=== PATIENT | female | born 1995 | race Caucasian/White ===

== ENCOUNTER 2020-07-05 16:08 | Emergency (ER) | payer OTHER ==
[2020-07-05 18:08] LABS: BILIRUBIN NEGATIVE (NEGATIVE); BLOOD NEGATIVE Ery/uL (NEGATIVE); CLARITY CLEAR (CLEAR); COLOR YELLOW (YELLOW); GLUCOSE (U) NORMAL (NORMAL); LEUKOCYTES NEGATIVE Leu/uL (NEGATIVE); NITRITE NEGATIVE (NEGATIVE); PROTEIN NEGATIVE (NEGATIVE)
[2020-07-05 18:20] LABS: BASOPHIL 0.7 % (0-2); EOSINOPHIL 3.5 % (0-5); HGB 16.1 g/dl (12.5-16.0); LYMPHOCYTE 32.7 % (15-48); MCH 32.6 pg (25.0-31.0); MCHC 34.3 g/dL (32.0-36.0); MCV 95.1 fL (78.0-100.0); MONOCYTE 13.4 % (0-12); MPV 9.1 fL (6.0-9.5); NEUTROPHIL 49.6 % (41-80); NRBC 0; PLT 316 K/uL (150-400); RBC 4.94 M/uL (4.20-5.40); RDW 12.4 % (11.5-14.0); WBC 7.6 K/uL (4.0-10.5)
[2020-07-05 18:35] LABS: ALBUMIN 4.3 g/dL (3.4-5.0); BILIRUBIN - TOTAL 0.4 mg/dL (0.2-1.0); BUN/CREAT RATIO (CALC) 16.4 RATIO; CREATININE 0.67 mg/dL (0.51-0.95); GLOBULIN (CALCULATION) 3.8 g/dL; POTASSIUM 3.9 mmol/L (3.5-5.1); TOTAL PROTEIN 8.1 g/dL (6.4-8.2)
[2020-07-05] MEDS ORDERED: BACLOFEN 10MG T10 MG PO (20:33)
[2020-07-05] MEDS ORDERED: NAPROXEN500 MG PO (20:33)
== END 2020-07-05 22:20 | disposition home or self-care (01) ==
LOC: FER 16:08
PROVIDERS: Nurse Practitioner Family
DX: M75.91 Shoulder lesion, unspecified, right shoulder (principal); M54.2 Cervicalgia; R21 Rash and other nonspecific skin eruption; R03.0 Elevated blood-pressure reading, without diagnosis of hypertension; J45.909 Unspecified asthma, uncomplicated; F17.210 Nicotine dependence, cigarettes, uncomplicated
CPT/HCPCS: 36415; 73030; 80053; 81003; 85025; 93005; J1100; J1885

== ENCOUNTER 2020-11-01 15:50 | Emergency (ER) | payer OTHER ==
[~2020-11-01 15:50] MED LIST: BACLOFEN 10MG T10 MG PO; NAPROXEN500 MG PO
[2020-11-01] MEDS ORDERED: FLEXERIL5 MG PO (17:54)
[2020-11-01] MEDS ORDERED: NAPROXEN500 MG PO (17:54)
== END 2020-11-01 18:31 | disposition home or self-care (01) ==
LOC: FER 15:50
DX: S29.012A Strain of muscle and tendon of back wall of thorax, initial encounter (principal); M54.2 Cervicalgia; J45.909 Unspecified asthma, uncomplicated; F17.210 Nicotine dependence, cigarettes, uncomplicated; X50.9XXA Other and unspecified overexertion or strenuous movements or postures, initial encounter
CPT/HCPCS: 96372; 99283; J1100; J1885